=== PATIENT | female | born 1940 ===

== ENCOUNTER 2023-12-07 15:54 | Outpatient (REF) | payer MEDICARE, SELFPAY ==
[2023-12-07 20:58] LABS: Anion Gap 3.9 mmol/L (3-11); BUN 27 mg/dL (7-18); CO2 31.1 mmol/L (21.0-32.0); CREATININE 0.6 mg/dL (0.55-1.02); Calcium 9.7 mg/dL (8.5-10.1); Chloride 106 mmol/L (98-107); Estimated GFR 90.12 (mL/min/1.73m2); Glucose 84 mg/dL (74-106); Potassium 4.7 mmol/L (3.5-5.1); Sodium 141 mmol/L (136-145)
[2023-12-07 21:04] LABS: Hemoglobin A1C 9.2 % (<5.7)
== END 2023-12-07 15:55 | disposition home or self-care (01) ==
LOC: NCHCN 15:54
PROVIDERS: Visit Provider Family Medicine
DX: E11.9 Type 2 diabetes mellitus without complications (principal)
CPT/HCPCS: 80048; 83036

== ENCOUNTER 2024-02-21 15:32 | Outpatient (REF) | payer MEDICARE, SELFPAY ==
[2024-02-21 16:33] LABS: Anion Gap 8.1 mmol/L (3-11); BUN 27 mg/dL (7-18); CO2 28.9 mmol/L (21.0-32.0); CREATININE 0.6 mg/dL (0.55-1.02); Calcium 9.5 mg/dL (8.5-10.1); Chloride 105 mmol/L (98-107); Creatine Kinase 104 U/L (26-192); Estimated GFR 90.12 (mL/min/1.73m2); Ferritin 105 ng/mL (8-252); Glucose 164 mg/dL (74-106); Magnesium 2.3 mg/dL (1.8-2.4); Potassium 4.3 mmol/L (3.5-5.1); Sodium 142 mmol/L (136-145)
[2024-02-21 16:44] LABS: Abs Immature Grans 0.03 10^3/uL (0.0-0.06); Absolute Basophil Count 0.03 10^3/uL (0.0-0.2); Absolute Eosinophil Count 0.06 10^3/uL (0.0-0.7); Absolute Lymphocyte Count 1.53 10^3/uL (1.2-3.4); Absolute Monocyte Count 0.67 10^3/uL (0.1-0.8); Basophils % 0.3; Eosinophils % 0.7; HCT 47.1 % (36.0-46.0); HGB 15.1 g/dL (11.2-15.7); Immature Grans % 0.3; Lymphocytes % 16.8; MCH 30.9 pg (27.0-33.0); MCHC 32.1 % (32.0-36.0); MCV 97 fL (80-95); MPV 9.9 fL (8.0-11.0); Monocytes % 7.3; Neutrophils % 74.6; Platelet Count 262 10^3/uL (130-400); RBC 4.88 10^6/uL (3.93-5.22); RDW 12.3 % (11.7-14.6); RDW-SD 44.1 fL; WBC 9.12 10^3/uL (4.4-10.8)
[2024-02-21 17:07] LABS: Hemoglobin A1C 8.7 % (<5.7)
== END 2024-02-21 15:33 | disposition home or self-care (01) ==
LOC: NCHCN 15:32
PROVIDERS: Visit Provider Family Medicine
DX: E11.9 Type 2 diabetes mellitus without complications (principal); R25.2 Cramp and spasm
CPT/HCPCS: 80048; 82550; 82728; 83036; 83735; 85025